=== PATIENT | male | born 1975 | race Caucasian/White ===

== ENCOUNTER 2016-08-18 06:41 | Emergency (ER) | payer MEDICAID, OTHER ==
[2016-08-18 06:55] VITALS: BP 100/70; PULSE 56; RESP 16; TEMP 98.4; O2SAT 95
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
[2016-08-18] MEDS ORDERED: HYDROCOD/APAP 5/325 PREPACK#6 BTL TAKEHOME ONE (07:42)
== END 2016-08-18 07:54 | disposition home or self-care (01) ==
DX: S60.042A Contusion of left ring finger without damage to nail, initial encounter (principal); V28.0XXA Motorcycle driver injured in noncollision transport accident in nontraffic accident, initial encounter; Y99.8 Other external cause status; Y93.55 Activity, bike riding
CPT/HCPCS: L3925